=== PATIENT | male | born 1950 | race Caucasian/White ===

== ENCOUNTER 2020-04-07 21:41 | Emergency (ER) | payer BC, MEDICARE ==
--- NOTE | 2020-04-07 22:12 | EDM.PDOC ---
ED [facility] GENERAL MEDICAL PROBLEM - General Chief Complaint: Upper Extremity Injury/Pain Stated Complaint: WRIST INJURY Time Seen by Provider: 04/07/20 21:51 Source of Information: Reports: Patient History Limitations: Reports: No Limitations - History of Present Illness INITIAL COMMENTS - FREE TEXT/NARRATIVE: 69-year-old male presents to the emergency department with complaints of a left wrist injury that he sustained just prior to arrival. Patient states that he was getting ready for bed and tripped over something and fell with outstretched hands. Patient states that he heard a popping in his left wrist and had immediate pain. He denies a syncopal episode and he denies hitting his head. Patient denies having any significant medical history and he does not take any prescription medications. Right Wrist Pain Score (Numeric/FACES): 6 - Related Data Allergies Allergy/AdvReac Type Severity Reaction Status Date / Time No Known Allergies Allergy Verified 04/07/20 21:51 Home Meds: Home Meds . [No Known Home Meds] 04/07/20 [History] Past Medical History HEENT History: Reports: Impaired Vision Other HEENT History: Wears glasses - Past Surgical History Musculoskeletal Surgical History: Reports: Arthroscopic Knee Social & Family History - Tobacco Use Tobacco Use Status *Q: Never Tobacco User - Recreational Drug Use Recreational Drug Use: No Review of Systems - Review of Systems Review Of Systems: Comprehensive ROS is negative, except as noted in HPI. ED EXAM, GENERAL - Physical Exam Exam: See Below Exam Limited By: No Limitations General Appearance: Alert, WD/WN, Mild Distress Eye Exam: Bilateral Eye: PERRL Ears: Hearing Grossly Normal Nose: Normal Inspection Throat/Mouth: Normal Inspection, Normal Lips, Normal Voice, No Airway Compromise Head: Atraumatic, Normocephalic Neck: Normal Inspection, Supple, Full Range of Motion Respiratory/Chest: No Respiratory Distress, Lungs Clear, Normal Breath Sounds, No Accessory Muscle Use, Chest Non-Tender Cardiovascular: Normal Peripheral Pulses, Regular Rate, Rhythm, No Edema, No Murmur Peripheral Pulses: 2+: Radial (L), Radial (R) GI/Abdominal: Normal Bowel Sounds, Soft, Non-Tender, No Distention (Male) Exam: Deferred Rectal (Males) Exam: Deferred Back Exam: Normal Inspection, Full Range of Motion Extremities: Normal Capillary Refill, Joint Swelling (Left wrist), Arm Pain (Wrist pain), Limited Range of Motion (Left wrist) Neurological: Alert, Oriented, Normal Cognition Psychiatric: Normal Affect, Normal Mood Skin Exam: Warm, Dry, Intact, Normal Color, No Rash Lymphatic: No Adenopathy Course - Vital Signs Text/Narrative:: 69-year-old male presenting with a left injury and sustained after tripping at home and falling with outstretched arms. Patient states he felt immediate pain and heard a pop in his left wrist. Upon assessment there is swelling noted to his left medial wrist and pain with any movement. Patient does have positive CMS and he is able to wiggle all digits. I have ordered a left wrist x-ray. Patient denies any past medical history and he does not take any prescription medications. Last Recorded V/S: Last Vital Signs Temp 96.9 F 04/07/20 21:51 Pulse 57 L 04/07/20 21:51 Resp 17 04/07/20 21:51 BP Pulse Ox - Orders/Labs/Meds Orders: Active Orders 24 hr Category Date Time Status Wrist Comp Min 3V Lt [CR] Stat Exams 04/07/20 22:04 Taken - Re-Assessments/Exams Free Text/Narrative Re-Assessment/Exam: 04/07/20 22:48 Xray reveals a compound fracture to the left radial head. It appears to be well aligned. Dr Orosco also evaluated this xray and he agrees. Volar forearm splint was applied. CMS remains positive after splint was placed. Pt will be discharged to home with recommendations that he follow up with Dr. Mg this week for further evaluation. Departure - Departure Time of Disposition: 22:52 Disposition: Home, Self-Care 01 Condition: Fair Clinical Impression: Closed fracture of radius Qualifiers: Encounter type: initial encounter Radius location: distal Fracture morphology: unspecified fracture morphology Laterality: left Qualified Code(s): S52.502A - Unspecified fracture of the lower end of left radius, initial encounter for closed fracture - Discharge Information Instructions: Radial Fracture Forms: ED Department Discharge Additional Instructions: You were seen in the emergency department with complaints of injury to the right wrist. Xray reveals a fracture of the distal radius. A volar splint was applied. You will need to keep this in place at all times. Follow up with Dr. Mg at [facility] this week. The phone number is [phone]. You will need to call them in the morning to schedule the appointment. May alternate tylenol 650mg with ibuprofen 600mg every 4 hours for the next 48 hours. Rest, ice 20 min at a time three times daily, and elevate the left arm as much as possible. Sepsis Event Note (ED) - Evaluation Sepsis Screening Result: No Definite Risk - Focused Exam Vital Signs: Vital Signs Temp Pulse Resp 04/07/20 21:51 96.9 F 57 L 17 - My Orders Last 24 Hours: My Active Orders 04/07/20 22:04 Wrist Comp Min 3V Lt [CR] Stat - Assessment/Plan Last 24 Hours: My Active Orders 04/07/20 22:04 Wrist Comp Min 3V Lt [CR] Stat
--- NOTE | 2020-04-08 07:00 | CR ---
Left wrist: 4 views of the left wrist were obtained. Comparison: None previously. Fracture is identified within the distal radius with mild impaction and slight dorsal tilt of the distal radius. Small fracture is noted at the base of the ulnar styloid process. Soft tissue swelling is noted. No additional abnormality is appreciated. Impression: 1. Slightly impacted distal left radial fracture. 2. Fracture within the ulnar styloid process. 3. Soft tissue swelling. Diagnostic code #3
== END 2020-04-07 23:05 | disposition home or self-care (01) ==
LOC: JD.ED 21:41
DX: S52.502A Unspecified fracture of the lower end of left radius, initial encounter for closed fracture (principal); W01.0XXA Fall on same level from slipping, tripping and stumbling without subsequent striking against object, initial encounter
CPT/HCPCS: 29125; 73110-26-LT; 73110-LT; 99283; 99283-25

== ENCOUNTER 2020-04-09 09:52 | Day surgery (SDC) | payer BC, MEDICARE ==
[~2020-04-09 09:52] MED LIST: Lactated Ringers 1,000 ML IV SCH; Lidocaine 1%/Sod Bicarbonate in NS 8.4% 1 ML Syringe IDERM PRN; Propofol 200 MG/20 ML SDV ONE; Sodium Chloride 0.9% 10 ML Syringe FLUSH PRN
--- NOTE | 2020-04-09 10:22 | PCM.PREANE ---
Preanesthetic Assessment - Procedure Proposed Procedure: left wrist closed reduction and cast - Anesthesia/Transfusion/Family Hx Anesthesia History: Prior Anesthesia Without Reaction Family History of Anesthesia Reaction: No Transfusion History: No Prior Transfusion(s) - Review of Systems General: No Symptoms Pulmonary: No Symptoms Cardiovascular: No Symptoms Gastrointestinal: No Symptoms Neurological: No Symptoms Other: Reports: None - Physical Assessment NPO Status Date: 04/08/20 NPO Status Time: 19:00 Vital Signs: 116/72 64 97.4 16 100% Height: 6 ft Weight: 66.7 kg ASA Class: 1 Mental Status: Alert & Oriented x3 Airway Class: Mallampati = 1 Dentition: Reports: Partial Thyro-Mental Finger Breadths: 3 Mouth Opening Finger Breadths: 3 ROM/Head Extension: Full Lungs: Clear to Auscultation, Normal Respiratory Effort Cardiovascular: Regular Rate, Regular Rhythm - Allergies Allergies/Adverse Reactions: Allergies Allergy/AdvReac Type Severity Reaction Status Date / Time No Known Allergies Allergy Verified 04/08/20 12:31 - Blood Blood Available: No - Acknowledgements Anesthesia Type Planned: MAC Pt an Appropriate Candidate for the Planned Anesthesia: Yes Alternatives and Risks of Anesthesia Discussed w Pt/Guardian: Yes Pt/Guardian Understands and Agrees with Anesthesia Plan: Yes PreAnesthesia Questionnaire HEENT History: Reports: Impaired Vision Other HEENT History: Wears glasses Cardiovascular History: Reports: None Respiratory History: Reports: None Gastrointestinal History: Reports: None Genitourinary History: Reports: None VEHICLE [employer] CON[employer]TER History: Reports: None Musculoskeletal History: Reports: None Neurological History: Reports: None Psychiatric History: Reports: None Endocrine/Metabolic History: Reports: None Hematologic History: Reports: None Immunologic History: Reports: None Oncologic (Cancer) History: Reports: None Dermatologic History: Reports: None - Infectious Disease History Infectious Disease History: Reports: None - Past Surgical History Head Surgeries/Procedures: Reports: None Cardiovascular Surgical History: Reports: None Respiratory Surgical History: Reports: None GI Surgical History: Reports: None Female Surgical History: Reports: None Endocrine Surgical History: Reports: None Neurological Surgical History: Reports: None Musculoskeletal Surgical History: Reports: Arthroscopic Knee Oncologic Surgical History: Reports: None Dermatological Surgical History: Reports: None - SUBSTANCE USE Tobacco Use Status *Q: Never Tobacco User Tobacco Use Within Last Twelve Months: No Second Hand Smoke Exposure: No Days Per Week of Alcohol Use: 0 Recreational Drug Use History: No - HOME MEDS Home Medications: Home Meds . [No Known Home Meds] 04/07/20 [History] - CURRENT (IN HOUSE) MEDS Current Meds: Current Medications Lactated Ringer's (Ringers, Lactated) 1,000 mls @ 125 mls/hr IV ASDIRECTED PAT Stop: 04/09/20 23:00 Lidocaine/Sodium Bicarbonate (Buffered Lidocaine 1% In Ns 8.4%) 0.25 ml IDERM ONETIME PRN PRN Reason: Prior to IV Start Stop: 04/09/20 18:00 Sodium Chloride (Saline Flush) 10 ml FLUSH ASDIRECTED PRN PRN Reason: Keep Vein Open Stop: 04/09/20 18:00 Discontinued Medications Lactated Ringer's (Ringers, Lactated) 1,000 mls @ 125 mls/hr IV ASDIRECTED PAT Stop: 04/09/20 23:00 Lidocaine/Sodium Bicarbonate (Buffered Lidocaine 1% In Ns 8.4%) 0.25 ml IDERM ONETIME PRN PRN Reason: Prior to IV Start Stop: 04/09/20 18:00 Propofol (Diprivan 20 Ml) Confirm Administered Dose 200 mg .ROUTE .STK-MED ONE Stop: 04/09/20 09:48 Sodium Chloride (Saline Flush) 10 ml FLUSH ASDIRECTED PRN PRN Reason: Keep Vein Open Stop: 04/09/20 18:00
--- NOTE | 2020-04-09 10:37 | PCM.PRNOTE ---
#1 Interpretation EKG Date: 04/09/20 Time: 10:22 Rhythm: NSR Rate (Beats/Min): 59 [place]: Normal P-Wave: Present QRS: Normal ST-T: Normal QT: Normal
[2020-04-09] MEDS ORDERED: Lidocaine 1% 4 ML ONE (11:14)
[2020-04-09] MEDS ORDERED: Midazolam 1 MG/ML 2 ML SDV ONE (11:14)
[2020-04-09] MEDS ORDERED: fentaNYL 100 MCG/2 ML SDV ONE (11:14)
[2020-04-09] MEDS ORDERED: HYDROmorphone 0.5 MG/0.5 ML Syringe ONE (11:15)
[2020-04-09] MEDS ORDERED: diphenhydrAMINE 50 MG/ML SDV IVPUSH PRN (11:33)
[2020-04-09] MEDS ORDERED: Ondansetron 4 MG/2 ML SDV IVPUSH PRN (11:33)
[2020-04-09] MEDS ORDERED: HYDROmorphone 0.5 MG/0.5 ML Syringe IVPUSH PRN (11:33)
--- NOTE | 2020-04-09 11:55 | PCM48HPAN ---
Post Anesthesia Note - EVALUATION WITHIN 48HRS OF ANESTHETIC Vital Signs in Normal Range: Yes Patient Participated in Evaluation: Yes Respiratory Function Stable: Yes Airway Patent: Yes Cardiovascular Function Stable: Yes Hydration Status Stable: Yes Pain Control Satisfactory: Yes Nausea and Vomiting Control Satisfactory: Yes Mental Status Recovered: Yes Vital Signs: Last Vital Signs Temp 36.3 C 04/09/20 10:05 Pulse 64 04/09/20 10:05 Resp 16 04/09/20 10:05 BP 116/72 04/09/20 10:05 Pulse Ox 100 04/09/20 10:05
[2020-04-09] MEDS: fentaNYL 100 MCG/2 ML SDV IVPUSH PRN ×2 (11:59→12:27)
[2020-04-09] MEDS ORDERED: traMADol 50 MG Tab PO SCH (12:15)
--- NOTE | 2020-04-09 12:26 | CR ---
Left wrist: 6 fluoroscopic spot views of the left wrist were obtained. Final film shows good application of the distal radial fracture. Slightly displaced ulnar styloid process fracture is noted. Final 2 films show fiberglass cast in place. Fluoroscopy time given as 9.0 seconds. Impression: 1. Procedural study as noted above. Diagnostic code #2
--- NOTE | 2020-04-11 12:18 | PCM.OPNOTE ---
- General Post-Op/Procedure Note Date of Surgery/Procedure: 04/09/20 Operative Procedure(s): left distal radius and ulna closed reduction with short arm casting Pre Op Diagnosis: left distal radius and ulna fracture Post-Op Diagnosis: Same Anesthesia Technique: MAC Primary Surgeon: Harjit Mg Anesthesia Provider: Mandi Louise Saloon Keeper: Doris Lopez in mLs: 0 Complications: None Condition: Good
--- NOTE | 2020-04-11 12:55 | OR ---
DATE OF OPERATION: 04/09/2020 SURGEON: Harjit Mg MD OPERATION PERFORMED: Left distal radius and ulna closed reduction with short- arm casting. PREOPERATIVE DIAGNOSIS: Left distal radius and ulnar fracture, displaced. POSTOPERATIVE DIAGNOSIS: Left distal radius and ulnar fracture, displaced. ANESTHESIA: MAC. ANESTHESIA PROVIDER: Mandi Lousie CRNA DENSITOMETRIST: Doris Lopez LPN ESTIMATED BLOOD LOSS: Not applicable. COMPLICATIONS: None. CONDITION: Stable. DESCRIPTION OF PROCEDURE: The patient was identified in the preoperative holding area. Proper site was marked and identified by surgeon. The patient was taken back to the operating theater where after adequate anesthesia, a time-out was performed. At this time, premanipulation radiographs were taken utilizing C-arm fluoroscopy. After this, it was reduced with traction and ulnar deviation. At this time, it was found to be anatomically reduced in both AP and lateral views. [place] was then placed. Cast padding was placed, and then a short-arm cast was applied. Molding was done, and it was again found to be in anatomic reduction on both AP and lateral views utilizing C-arm fluoroscopy once the cast had set. The patient tolerated the procedure well, was sent to the PACU in stable condition. He will follow up in clinic. ELVI /[id number]
== END 2020-04-09 13:55 | disposition home or self-care (01) ==
LOC: JD.SDS 09:52
PROVIDERS: ATTEND Orthopaedic Surgery
DX: S52.502A Unspecified fracture of the lower end of left radius, initial encounter for closed fracture (principal); S52.602A Unspecified fracture of lower end of left ulna, initial encounter for closed fracture
CPT/HCPCS: 25605; 76000; 93005; A9270; J1170; J2250; J2704; J3010; J7120; 01820